=== PATIENT | male | born 1995 | race African-American/Black ===

== ENCOUNTER 2017-06-16 22:49 | Emergency (ER) | payer BC ==
[~2017-06-16] VITALS: Ht 188 cm; Wt 136.4 kg
[2017-06-16] MEDS ORDERED: ONDANSETRON HCL 4 MG/2 ML VIAL IVP ONE (23:00)
[2017-06-16] MEDS ORDERED: MORPHINE SULFATE 2 MG/ML SYRINGE IVP ONE (23:00)
[2017-06-16] MEDS ORDERED: BUPIVACAINE HCL/PF 0.5% 10 ML VIAL SQ ONE ×3 (23:00→23:15)
[2017-06-16] MEDS ORDERED: CeFAZolin 2 GM/DEXTROSE 50 ML IV ONE (23:00)
[2017-06-16] MEDS ORDERED: PERTUSS(ACELL),DIPH,TET VAC/PF 0.5 ML VIAL IM ONE (23:15)
[2017-06-17] MEDS ORDERED: POVIDONE-IODINE 10% 120 ML SOLUTION TP ONE (00:15)
[2017-06-17] MEDS ORDERED: MORPHINE SULFATE 10 MG/ML SYRINGE ONE (01:10)
[2017-06-17] MEDS ORDERED: BUPIVACAINE HCL/PF 0.5% 10 ML VIAL SQ ONE ×2 (01:15→01:30)
[2017-06-17] MEDS ORDERED: MORPHINE SULFATE 10 MG/ML SYRINGE IVP ONE (01:15)
[2017-06-17 02:59] VITALS: BP 127/67
[2017-06-17] MEDS ORDERED: HYDROCODONE/ACETAMINOPHEN 5-325 MG TABLET PO ONE (03:00)
[2017-06-17] MEDS ORDERED: IBUPROFEN 600 MG TABLET PO ONE (03:00)
[2017-06-17] MEDS ORDERED: IBUPROFEN 800 MG TABLET PO ONE (03:00)
== END 2017-06-17 03:40 | disposition home or self-care (01) ==
LOC: EMS 22:51
DX: S61.402A Unspecified open wound of left hand, initial encounter (principal); W34.00XA Accidental discharge from unspecified firearms or gun, initial encounter; Y93.89 Activity, other specified; Y92.89 Other specified places as the place of occurrence of the external cause; Y99.8 Other external cause status
CPT/HCPCS: 12002; 73130; 90471; 90715; 96365; 96375; 96376; 99291; J0690; J2270 ×2; J2405; J3490 ×2